=== PATIENT | female | born 1990 | race Caucasian/White ===

== ENCOUNTER 2020-07-09 07:25 | Outpatient (RCR) | payer OTHER, SELFPAY ==
[2020-07-06 16:10] LABS: Beta HCG Quantitative 10.85 mIU/ML
[2020-07-09 08:21] LABS: Beta HCG Quantitative < 2.39 mIU/ML
== END 2020-10-04 23:59 | disposition home or self-care (01) ==
LOC: ANHLAB 07:25
PROVIDERS: Visit Provider Obstetrics & Gynecology Gynecology
DX: O26.851 Spotting complicating pregnancy, first trimester (principal); Z3A.00 Weeks of gestation of pregnancy not specified
CPT/HCPCS: 36415; 84702; 85461

== ENCOUNTER 2021-01-30 15:08 | Outpatient (CLI) | payer OTHER, SELFPAY ==
--- NOTE | ~2021-01-30 | US_ITS ---
EXAMINATION: US OB <=14 wk fetus w TV EXAM DATE: 01/30/2021 15:49 INDICATION: 1st trimester bleeding. TECHNIQUE: Pelvic obstetrical transabdominal sonogram was performed by a technologist. There are mu ltiple grayscale and Doppler images available for interpretation. There are no earlier studies of th is gestation for comparison. FINDINGS: Uterus measures 8.0 x 4.2 x 6.3 cm. There is an intrauterine gestation sac identified with abnormally shaped and small yolk sac. Cannot identify any definite pole. Mean sac diameter of 1 .0 cm corresponds to estimated age 5 weeks 4 days. There is a 2nd cystic region also identified withi n the other side of the uterus which is smaller, may also have a decidual reaction. Possibly another gestation sac with irregular shape. No pole. Poor prognostic indicators for this . The right ovary probably has the corpus luteal cyst. Doppler flow was confirmed in both ovaries. IMPRESSION: 2 intrauterine cystic regions, larger with abnormally yolk sac, the smaller with abnormal shape. No pole(s) identified. Poor prognostic indicators for this . Consider 1 week f ollow-up exam. Reviewed, dictated and finalized at location A. IMPRESSION: 2 intrauterine cystic regions, larger with abnormally yolk sac, the smaller with abnormal shape. No pole(s) identified. Poor prognostic ishmael cators for this . Consider 1 week follow-up exam.
== END 2021-01-30 15:09 | disposition home or self-care (01) ==
PROVIDERS: Visit Provider Obstetrics & Gynecology Gynecology
DX: O26.851 Spotting complicating pregnancy, first trimester (principal); Z3A.00 Weeks of gestation of pregnancy not specified
CPT/HCPCS: 76801; 76817

== ENCOUNTER 2021-02-11 06:53 | Outpatient (RCR) | payer OTHER, SELFPAY | END 2021-04-22 23:59 | disposition home or self-care (01) | LOC: ANHLAB 06:53 | PROVIDERS: Referring Provider Obstetrics & Gynecology; Visit Provider Obstetrics & Gynecology Gynecology | DX: O26.21 Pregnancy care for patient with recurrent pregnancy loss, first trimester (principal); O26.851 Spotting complicating pregnancy, first trimester; O02.1 Missed abortion; Z3A.00 Weeks of gestation of pregnancy not specified | CPT/HCPCS: 36415; 84702 ==

== ENCOUNTER 2021-02-11 13:48 | Outpatient (CLI) | payer OTHER, SELFPAY ==
--- NOTE | ~2021-02-11 | US_ITS ---
EXAMINATION: US OB <=14 wk fetus w TV DATE: 02/11/2021 14:35 INDICATION: Inappropriate beta hCG level for gestational age during first trimester . TECHNIQUE: Real-time pelvic ultrasound utilizing both a transvaginal and transabdominal probe was pe rformed. The interpreting radiologist was not present for the study. COMPARISON: 01/30/2021 FINDINGS: The uterus measures 9.8 x 7.0 x 6.0 cm. There are couple intrauterine gestational sacs. A yolk sac a nd pole are identified in the larger stational sac (A) with mean sac diameter of 2.1 cm is loca patti at the right side of the fundus. The crown rump length measures 3-4 mm, which correlates with an estimated gestational age of 6 weeks and 0 days. heart motion is identified on cine grayscale i mages however a trace on M-mode Doppler provided for assessment of heart rate. At the left side of the fundus there is a smaller gestational sac (B) with mean sac diameter of 1.1 c m and irregular in places concave margins. A yolk sac but no definitive pole is identified with in the smaller gestational sac. There is a 2.7 x 1.9 x 3.1 cm hypoechoic subchorionic hematoma situated between the 2 gestational sac s. The left and right ovaries are not visualized. There is small amount of anechoic free fluid in the pe lvis. IMPRESSION: 1. 2 intrauterine gestational sacs, the larger gestational sac A located on the right containing a si ngle living intrauterine fetus. The second smaller gestational sac B demonstrates irregular margins w ith a yolk sac but no discernible pole yet apparent. 2. Gestational age by ultrasound based on the single measured crown-rump length for gestational sac A of 6 weeks 0 day(s) +/- 3 day(s) with ultrasound estimated date of delivery (AMELIA) of 10/01/2021. 3. 3.1 x 2.7 x 1.9 cm hypoechoic subchorionic hematoma situated between the 2 gestational sacs. Reviewed, dictated and finalized at location A. IMPRESSION: 1. 2 intrauterine gestational sacs, the larger gestational sac A located on the right containing a single living intrauterine fetus. The second smaller gestat ional sac B demonstrates irregular margins with a yolk sac but no discernible f etal pole yet apparent. 2. Gestational age by ultrasound based on the single measured crown-rump lengt h for gestational sac A of 6 weeks 0 day(s) +/- 3 day(s) with ultrasound estima patti date of delivery (AMELIA) of 10/01/2021. 3. 3.1 x 2.7 x 1.9 cm hypoechoic subchorionic hematoma situated between the 2 g estational sacs.
== END 2021-02-11 13:49 | disposition home or self-care (01) ==
PROVIDERS: Visit Provider Obstetrics & Gynecology Gynecology
DX: O02.81 Inappropriate change in quantitative human chorionic gonadotropin (hCG) in early pregnancy (principal); Z3A.01 Less than 8 weeks gestation of pregnancy; O36.8910 Maternal care for other specified fetal problems, first trimester, not applicable or unspecified
CPT/HCPCS: 36415; 76801; 76817; 84702

== ENCOUNTER → 2021-02-18 12:55 | Outpatient (CLI) | payer OTHER, SELFPAY ==
--- NOTE | ~2021-02-18 | US_ITS ---
. EXAMINATION: US OB transvaginal DATE: 02/18/2021 13:21 INDICATION: Subchorionic hematoma. TECHNIQUE: Real-time transabdominal and transvaginal pelvic ultrasound was performed. COMPARISON: Ultrasound 01/30/2021, 02/11/2021 FINDINGS: TRANSABDOMINAL ULTRASOUND: The uterus measures 9.9 x 5.7 x 6.8 cm. TRANSVAGINAL ULTRASOUND: There are two intrauterine gestational sacs, each with a yolk sac and pole. The poles measure 6 mm and 4 mm, respectively. heart motion is not identified by M- mode Doppler, which may be normal at this size. There is a 2.6 x 1.7 x 1.9 cm subchorionic hematoma t hat borders both gestational sacs that measured 3.1 x 2.7 x 1.9 cm on 02/11/21. The ovaries are not vi sualized. There is no free fluid in the pelvis. IMPRESSION: 1. Dichorionic, diamniotic twin fetuses with estimated date of delivery of 10/01/21 based on the ult rasound from 02/11/21. 2. Subchorionic hematoma with slight decrease in size from 02/11/21. Reviewed, dictated and finalized at location A. IMPRESSION: 1. Dichorionic, diamniotic twin fetuses with estimated date of delivery of based on the ultrasound from 02/11/21. 2. Subchorionic hematoma with slight decrease in size from 02/11/21.
== END ==
PROVIDERS: Visit Provider Obstetrics & Gynecology Gynecology
DX: O46.91 Antepartum hemorrhage, unspecified, first trimester (principal); Z3A.01 Less than 8 weeks gestation of pregnancy
CPT/HCPCS: 76817

== ENCOUNTER 2021-02-25 15:11 | Outpatient (CLI) | payer OTHER, SELFPAY ==
--- NOTE | ~2021-02-25 | US_ITS ---
EXAMINATION: US OB <=14 wk fetus w TV DATE: 02/25/2021 15:46 INDICATION: Twin with demise. TECHNIQUE: Real-time transabdominal and transvaginal pelvic ultrasound was performed. COMPARISON: Ultrasound 02/18/2021 FINDINGS: TRANSABDOMINAL ULTRASOUND: The uterus measures 9.1 x 6.2 x 8.9 cm. TRANSVAGINAL ULTRASOUND: There are 2 intrauterine gestational sacs, each with a yolk sac and po le. Fetus a demonstrates a crown-rump length of 6 mm without change from 02/18/2021. Fetus B demonstrat es a crown-rump length of 3 mm that measured 4 mm on 02/18/2021. heart motion is not identified b y M-mode Doppler in either fetus. The right ovary measures 1.6 x 2.8 x 1.5 cm. The left ovary measure s 1.1 x 2.2 x 1.3 cm. There is no free fluid in the pelvis. IMPRESSION: 1. Dichorionic, diamniotic twin fetuses without increase in size from 02/18/2021, consistent with phylicia se of both fetuses. Reviewed, dictated and finalized at location A. IMPRESSION: 1. Dichorionic, diamniotic twin fetuses without increase in size from 02/18/2021 , consistent with demise of both fetuses.
== END 2021-02-25 15:12 | disposition home or self-care (01) ==
PROVIDERS: Visit Provider Obstetrics & Gynecology Gynecology
DX: Z36.89 Encounter for other specified antenatal screening (principal); O02.1 Missed abortion
CPT/HCPCS: 76801; 76817

== ENCOUNTER → 2021-02-27 01:25 | Outpatient (CLI) | payer OTHER, SELFPAY ==
[2021-02-27 21:08] LABS: SARS-CoV-2 RNA PCR Negative
== END ==
PROVIDERS: Visit Provider Obstetrics & Gynecology Gynecology
DX: Z01.812 Encounter for preprocedural laboratory examination (principal); Z20.822 Contact with and (suspected) exposure to COVID-19
CPT/HCPCS: C9803; U0003; U0005

== ENCOUNTER 2021-03-01 00:43 | Day surgery (SDC) | payer OTHER, SELFPAY ==
[2021-02-26 14:59] VITALS: BMI 20.9
[2021-03-01 13:18] VITALS: BP 114/62; PULSE 80; RESP 14; TEMP 37.7; O2SAT 100
[2021-03-01] MEDS: ACETAMINOPHEN 500 MG TABLET 1000 MG PO (13:29)
[2021-03-01] MEDS: LACTATED RINGERS 1,000 ML 30 ML IV CONT ×2 (13:49→15:56)
[2021-03-01 13:59] VITALS: BMI 20.9
--- NOTE | 2021-03-01 14:35 | P.PNAN_ITS ---
Anes - Initial Pre Proc Eval Procedure: Operation Date: 03/01/21 15:00 Proposed Procedures p Suction Dilatation and Curettage - Yolanda Burgess MD Date/Time: 03/01/21 14:35 Surgeon: Yolanda Burgess MD Pre Op Diagnosis: missed AB Patient Data Age: 30 Gender: F Height: 5 ft 4 in Weight: 55.5 kg Last Vital Signs Temp 37.7 C H 03/01/21 13:18 Pulse 80 03/01/21 13:18 Resp 14 03/01/21 13:18 BP 114/62 03/01/21 13:18 Pulse Ox 100 03/01/21 13:18 Allergies Allergy/AdvReac Type Severity Reaction Status Date / Time No Known Allergies Allergy Mild Verified 03/01/21 13:31 Home Medications Medication Instructions Recorded Confirmed Type No Home Medications 02/26/21 03/01/21 History Patient hx anesthesia problems: none Family hx anesthesia problems: none [facility] Past Medical History Medical History (Updated 03/01/21 @ 14:35 by Latrell Riddle MD) Missed ab Social History Social History Smoking status: Never smoker Alcohol intake: never Substance use: never Substance use type: does not use Living arrangements: with family Spiritual care concerns: No Anes - Eval Final PreProcedure Day of Procedure 03/01/21 14:35 Patient weight: normal Heart: regular rate and rhythm Lungs: clear to auscultation Airway: Mallampati scale class 1 Neurological: alert and oriented Last oral intake: >/= 8 hours ASA classification: II Emergent: no Anesthetic plan: proceed Anesthesia type and monitoring: general GIVS and standard monitoring Informed Consent: The patient's anesthetic plan and its attendant risks and benefits were discussed with the patient/family/POA. Questions were solicited and answers provided to the satisfaction of the patient/family/POA.
--- NOTE | 2021-03-01 14:49 | P.HP_ITS ---
History of Present Illness History of Present Illness Consent: Risks, benefits, and alternatives have been discussed and questions answered. Patient agrees to proceed with procedure. Chief complaint: missed AB Narrative: Gely Duong is a 30 year old female with twin demise at 6- 7 weeks. Patient initially had bleeding but has stopped. Recommend to proceed with suction d&c. Risks of procedure discussed and patient agrees to proceed. Plan to check chromosomes. Review of Systems Review of Systems: Narrative: not repeated day of surgery; patient states no changes in status [facility] Past Medical History Medical History (Updated 03/01/21 @ 14:52 by Yolanda Burgess MD) Missed ab Spontaneous x 1 Social History Social History Smoking status: Never smoker Alcohol intake: never Substance use: never Substance use type: does not use Living arrangements: with family Spiritual care concerns: No Meds Home Medications and Allergies Home Medications Medication Instructions Recorded Confirmed Type No Home Medications 02/26/21 03/01/21 History Allergies Allergy/AdvReac Type Severity Reaction Status Date / Time No Known Allergies Allergy Mild Verified 03/01/21 13:31 Vital Signs Vital Signs - 24 hr 03/01/21 13:18 Temperature 99.9 F H Pulse Rate 80 Respiratory Rate 14 Blood Pressure 114/62 Pulse Oximetry 100 Exam Const: General: comfortable Resp: Effort & Inspection: normal respiratory effort Auscultation: clear to auscultation bilaterally Cardio: Rate: regular rate Rhythm: regular rhythm GI: Inspection: normal to inspection GI Palp: No abdominal tenderness Assessment and Plan Assessment and plan (1) Missed ab: Code(s): O02.1 - Missed Status: Inactive Assessment and Plan: Proceed with D&C and check chromosomes
--- NOTE | 2021-03-01 14:52 | WPDHPUPDATE1 ---
History and Physical Update Update Date/Time: 03/01/21 14:52 History and Physical has been reviewed, including an updated exam of the patient. There are NO changes in the patient's condition. Risks, benefits, and alternatives have been discussed and questions answered. Patient agrees to proceed with procedure.
--- NOTE | 2021-03-01 15:23 | PM.PROC ---
Procedure Note - Detailed Date of procedure: 03/01/21 Pre-op diagnosis: missed AB twins Post-op diagnosis: same Procedure performed: suction D&C Description of procedure: The patient is taken to the operating room and placed in the dorsal lithotomy position under anesthesia. She is prepped and draped in the usual sterile fashion. The bivalve speculum was placed in the vagina and the cervix is grasped on the anterior lip with a tenaculum. The cervix is injected with 1% lidocaine in each quadrant. The uterus is sounded to 10cm. The cervix is serially dilated with Hegar to an 8. The 8mm curved suction curette is used to evacuate the uterus until no further products were noted in the tubing. The sharp curette is used to sharply curette the endometrium until a good uterine cry was noted in all areas. No additional material was obtained. The suction curette was passed 1 additional time and no further products were noted in the tubing. All instruments are removed. Patient is awakened from anesthesia and taken to recovery in stable condition. Sponge, needle, and instrument counts are correct per the OR staff. Anesthesia: MAC and local Surgeon: Yolanda Burgess MD Estimated blood loss (mL): 100 (100 cc POC) Drains: No Packing: No Pathology: yes (POC) Complications: No immediate complications Condition: stable Disposition: PACU Findings: uterus 10 cm; moderate POC
[2021-03-01 15:24] VITALS: BP 98/50; PULSE 85; RESP 16; O2SAT 100
[2021-03-01 15:50] VITALS: BP 101/54; PULSE 77; RESP 16
== END 2021-03-01 16:15 | disposition home or self-care (01) ==
PROVIDERS: Visit Provider Obstetrics & Gynecology Gynecology
PROC: (CPT 59820; principal; 2021-03-01 15:00)
DX: O02.1 Missed abortion (principal); Z3A.01 Less than 8 weeks gestation of pregnancy
CPT/HCPCS: 59820; 36415; 85461; 88305; A9270; C9803; J0131; J1100; J2250; J2704; J7120; U0003; U0005

== ENCOUNTER 2021-07-09 15:02 | Emergency (ER) | payer OTHER, SELFPAY ==
--- NOTE | ~2021-07-09 | US_ITS ---
EXAMINATION: US OB <=14 wk fetus w TV DATE: 07/09/2021 16:48 INDICATION: One day of bleeding and cramping during first trimester of . TECHNIQUE: Real-time pelvic ultrasound utilizing both a transvaginal and transabdominal probe was pe rformed. The interpreting radiologist was not present for the study. COMPARISON: None. FINDINGS: The uterus measures 9.2 x 4.1 x 5.3 cm. There is an intrauterine gestational sac with double decidua sign and 3 mm yolk sac.No discernible pole yet apparent. The mean sac diameter of 11 mm correl ates with an estimated gestational age of 5 weeks and 6 days. There is a 6 mm hypoechoic region withi n the endometrial canal on the right side of the gestational sac likely representing a small subchori onic hematoma. The right ovary measures 2.7 x 1.7 x 2.0 cm. The left ovary is not visualized. There i s no free fluid in the pelvis. IMPRESSION: 1. Single intrauterine gestational sac with yolk sac but no discernible pole likely due to eleno y stage of . 2. Gestational age by ultrasound mean sac diameter of 5 weeks 6 day(s) +/- 4 day(s) with ultrasound estimated date of delivery (AMELIA) of 03/05/2022. 3. Small 6 mm subchorionic hematoma. Reviewed, dictated and finalized at location B. IMPRESSION: 1. Single intrauterine gestational sac with yolk sac but no discernible p ole likely due to early stage of . 2. Gestational age by ultrasound mean sac diameter of 5 weeks 6 day(s) +/- 4 d ay(s) with ultrasound estimated date of delivery (AMELIA) of 03/05/2022. 3. Small 6 mm subchorionic hematoma.
[2021-07-09 15:15] VITALS: BP 115/64; PULSE 99; RESP 16; TEMP 36.9; O2SAT 100
[2021-07-09 15:54] LABS: Basophils Absolute Auto 0.1 K/mm3 (0.0-0.1); Basophils Percent Auto 0.6 % (0.2-1.2); Eosinophils Absolute Auto 0.1 K/mm3 (0-0.3); Eosinophils Percent Auto 0.9 % (0-4.4); Hematocrit 39.6 % (37.0-47.0); Hemoglobin 13.4 g/dL (12.0-15.0); Immature Granulocyte Absolute 0.03 K/mm3 (0.00-0.031); Immature Granulocyte Percent A 0.4 % (0-0.5); Lymphocytes Absolute Auto 1.85 K/mm3 (0.9-3.2); Lymphocytes Percent Auto 21.9 % (18.3-44.2); Mean Corpuscular HGB Conc 33.8 g/dl (32-36); Mean Corpuscular Hemoglobin 32.9 pg (26-34); Mean Corpuscular Volume 97.3 fl (80-100); Monocytes Absolute Auto 0.6 K/mm3 (0.1-0.6); Monocytes Percent Auto 6.9 % (2.6-8.5); Neutrophils Absolute Auto 5.9 K/mm3 (1.3-6.7); Neutrophils Percent Auto 69.3 % (45.5-73.1); Platelet Count Result 226 k/mm3 (150-375); Red Blood Count 4.07 M/mm3 (4.2-5.4); Red Cell Distribution Width 12.7 % (11.5-14.5); White Blood Count 8.4 K/mm3 (4.5-10.0)
[2021-07-09 17:17] VITALS: BP 109/68; PULSE 86; RESP 18; O2SAT 98
--- NOTE | 2021-07-09 17:30 | ED.GENADULT ---
HPI - General Adult General Chief complaint: [employer] Stated complaint: 5 weeks Bleeding Time Seen by Provider: 07/09/21 17:20 Source: patient History of Present Illness HPI narrative: Patient is a 31 y/o female complaining of mild to moderate vaginal bleed starting earlier today. She states that she is passing some clots. There is no known alleviating or exacerbating factor. She has some mild pelvic cramp, but it has resolved. She states that she is and her LMP was on 05/30/21. She contacted her doctor's office and was told to come to ED for evaluation. Related Data Home Medications Medication Instructions Recorded Confirmed No Home Medications 02/26/21 03/01/21 Allergies Allergy/AdvReac Type Severity Reaction Status Date / Time No Known Allergies Allergy Mild Verified 03/01/21 13:31 Review of Systems Constitutional: Constitutional: Denies chills, Denies fever(s), Denies headache(s) and Denies weakness Eyes: Eyes: Denies blurry vision ENT: Denies headache(s) and Denies neck pain Cardiovascular: Cardiovascular: Denies chest pain and Denies dyspnea Respiratory: Respiratory: Denies cough and Denies dyspnea Gastrointestinal: Gastrointestinal: Denies abdominal pain, Denies diarrhea, Denies nausea and Denies vomiting Genitourinary: Genitourinary: Reports abnormal vaginal bleeding, Denies hematuria, Denies dysuria and Reports pelvic pain Musculoskeletal: Musculoskeletal: Denies back pain and Denies neck pain Neurologic: Denies headache(s) and Denies weakness PMFSH Past Medical History Medical History Missed ab Spontaneous x 1 Social History Social History Smoking status: Never smoker Alcohol intake: never Substance use: never Substance use type: does not use Spiritual care concerns: No Exam Const: General: no acute distress and well developed Orientation/consciousness: oriented to person, oriented to place, oriented to time and patient oriented x3 HENMT: Head: normocephalic Ears: external ears normal General nose exam: Normal external nose present Eyes: General: appearance normal, both eyes and all related structures Conjunctivae: conjunctivae normal Neck: Neck: normal visual inspection and full ROM Chest: Chest palpation & inspection: normal inspection of the chest Resp: Effort & Inspection: normal respiratory effort and able to speak in complete sentences GI: Inspection: normal to inspection GI Palp: Yes Soft to palpation Skin: General skin exam: normal color and turgor normal Neuro: General: oriented to person, oriented to place, oriented to time and patient oriented x3 Cognition (Neuro): normal cognition Extrem: General: normal to inspection, full ROM and no pedal edema Psych: Appearance: grossly normal Mental Status: mental status grossly normal Affect: normal affect Course Vital Signs Vital signs: Vital Signs Temperature 36.9 C 07/09/21 15:15 Pulse Rate 99 07/09/21 15:15 Respiratory Rate 16 07/09/21 15:15 Blood Pressure 115/64 07/09/21 15:15 Pulse Oximetry 100 07/09/21 15:15 Temperature 36.9 C 07/09/21 15:15 Pulse Rate 86 07/09/21 17:17 Respiratory Rate 18 07/09/21 17:17 Blood Pressure 109/68 07/09/21 17:17 Pulse Oximetry 98 07/09/21 17:17 Medical Decision Making Vital Signs Vital Signs: Vital Signs Temperature 36.9 C 07/09/21 15:15 Pulse Rate 99 07/09/21 15:15 Respiratory Rate 16 07/09/21 15:15 Blood Pressure 115/64 07/09/21 15:15 Pulse Oximetry 100 07/09/21 15:15 Temperature 36.9 C 07/09/21 15:15 Pulse Rate 86 07/09/21 17:17 Respiratory Rate 18 07/09/21 17:17 Blood Pressure 109/68 07/09/21 17:17 Pulse Oximetry 98 07/09/21 17:17 Lab Data Result diagrams: 07/09/21 15:44 Labs: Lab Results 07/09/21 07/09/21 07/09/21 Range/Units
== END 2021-07-09 17:49 | disposition home or self-care (01) ==
LOC: ANHED 17:40
PROVIDERS: Emergency Medicine; Emergency Provider Emergency Medicine
DX: O20.0 Threatened abortion (principal); Z3A.01 Less than 8 weeks gestation of pregnancy
CPT/HCPCS: 36415; 76801; 76817; 84702; 85025; 85461; 99284

== ENCOUNTER 2021-12-20 11:38 | Outpatient (CLI) | payer OTHER, SELFPAY ==
[2021-12-20 12:04] LABS: Hematocrit 35.8 % (37.0-47.0); Hemoglobin 12.1 g/dL (12.0-15.0); Mean Corpuscular HGB Conc 33.8 g/dl (32-36); Mean Corpuscular Hemoglobin 34.1 pg (26-34); Mean Corpuscular Volume 100.8 fl (80-100); Mean Platelet Volume 9.8 fl (7.4-10.4); Platelet Count Result 200 k/mm3 (150-375); Red Blood Count 3.55 M/mm3 (4.2-5.4); Red Cell Distribution Width 12.5 % (11.5-14.5); White Blood Count 11.8 K/mm3 (4.5-10.0)
[2021-12-20 12:54] LABS: HIV 1/2 Ab P24 Ag Result Negative (Negative)
[2021-12-20 13:34] LABS: Glucose 1 Hour PP 50gm Dose 93 mg/dL
== END 2021-12-20 11:39 | disposition home or self-care (01) ==
LOC: ANHLAB 11:40
PROVIDERS: Visit Provider Obstetrics & Gynecology
DX: Z34.90 Encounter for supervision of normal pregnancy, unspecified, unspecified trimester (principal)
CPT/HCPCS: 36415; 82947; 85027; 86703; G0432

== ENCOUNTER 2022-03-04 08:32 | Outpatient (RCR) | payer OTHER, SELFPAY ==
[2022-03-04 09:15] VITALS: BP 121/63; PULSE 75
== END 2022-03-24 08:09 | disposition home or self-care (01) ==
LOC: ANHOBOP 08:32
PROVIDERS: Visit Provider Obstetrics & Gynecology
DX: O36.8130 Decreased fetal movements, third trimester, not applicable or unspecified (principal); Z3A.39 39 weeks gestation of pregnancy
CPT/HCPCS: 59025

== ENCOUNTER 2022-03-07 05:51 | Inpatient (IN) | payer OTHER, SELFPAY ==
[2022-03-06 08:30] VITALS: BMI 29.7
[2022-03-07] VITALS (90 sets, daily range): BP systolic 72–144; BP diastolic 50–122; PULSE 41–260; RESP 18; TEMP 36.5–37.1; O2SAT 78–100
--- OUTSIDE RECORDS SUMMARY | 2022-03-07 05:56 | XMS_ITS ---
:1990 Author Care Team Providers Name Role Phone Timmy Kendrick Primary Care Provider Unavailable Allergies Code Code System Name Reaction Severity Status Onset NKDA ? Medications Name Status Start Date Stop Date ? ? progesterone micronized 100 mg capsule Completed ? 09/03/2021 Notes: PNV Problems Name Status Onset Date Source ? Active 08/06/2021 ? Procedures Date Name Performed by ? 03/06/2021 [employer] Surgery Information not avai lable Notes: suction D&C missed AB with twi ns ? Other Information not avai lable Notes: wisdom teeth removed 07/12/2021 , Obstetric, [address]St Trimester [address] [place] [address] ([address]) 08/20/2021 , Obstetric, 1St Trimester [facility] [address] [place] [address] [place] [phone] (Work [address]) Results Lab Results Date Name Specimen Result Interpretation Description Value Range Status Address ? 08/20/2021 Cbc ? White Blood 8.9 4.2-10.8 Final [place] Cells x10'3/uL x10'3/uL [facility] (Lab):
--- NOTE | 2022-03-07 06:20 | LDADM ---
This patient, Gely Duong, was admitted to Labor/Delivery/Recovery 106 on 03/07/22 at 05:51. Plans for labor, pain management and were discussed with patient. Patient/family oriented to hospital policies and general routines including ID bracelet, bed and alarms, visiting hours, pain management, procedures, bathroom and other care routines, personal items, smoking policy, room service/diet and guest tray routines, infant security routines, and visiting hours. Patient/Family are encouraged to report perceived risks to care and to ask questions if they do not understand what they are told or what they should do. See OBIX for further documentation.
[2022-03-07 06:42] LABS: Basophils Percent Auto 0.3 % (0.2-1.2); Eosinophils Absolute Auto 0.1 K/mm3 (0-0.3); Eosinophils Percent Auto 1.4 % (0-4.4); Hematocrit 30.5 % (37.0-47.0); Hemoglobin 10.2 g/dL (12.0-15.0); Immature Granulocyte Absolute 0.07 K/mm3 (0.00-0.031); Immature Granulocyte Percent A 0.7 % (0-0.5); Lymphocytes Absolute Auto 1.57 K/mm3 (0.9-3.2); Lymphocytes Percent Auto 15.7 % (18.3-44.2); Mean Corpuscular HGB Conc 33.4 g/dl (32-36); Mean Corpuscular Hemoglobin 31.4 pg (26-34); Mean Corpuscular Volume 93.8 fl (80-100); Monocytes Absolute Auto 0.6 K/mm3 (0.1-0.6); Monocytes Percent Auto 6.1 % (2.6-8.5); Neutrophils Absolute Auto 7.6 K/mm3 (1.3-6.7); Neutrophils Percent Auto 75.8 % (45.5-73.1); Platelet Count Result 204 k/mm3 (150-375); Red Blood Count 3.25 M/mm3 (4.2-5.4); Red Cell Distribution Width 12.6 % (11.5-14.5)
[2022-03-07] MEDS: LACTATED RINGERS 1,000 ML 125 ML IV CONT (06:56)
[2022-03-07] MEDS: OXYTOCIN 30 UNITS/NS 500 ML 30 UNITS/500 ML BAG 6 UNITS IV CONT (06:57)
[2022-03-07 07:20] LABS: Rapid Plasma Reagin Non-Reactive (NonReactive)
--- NOTE | 2022-03-07 08:07 | WPDANESEPPF ---
Anes - Initial Pre Proc Eval Procedure: labor epidural Date/Time: 03/07/22 08:07 Surgeon: Timmy Kendrick MD Pre Op Diagnosis: labor pain Pre Op Diagnosis: IOL Patient Data Age: 31 Gender: F Height: 1.6 m Weight: 76 kg Last Vital Signs Temp 36.5 C 03/07/22 07:00 Pulse 100 03/07/22 07:31 BP 112/96 H 03/07/22 07:31 Allergies Allergy/AdvReac Type Severity Reaction Status Date / Time No Known Allergies Allergy Mild Verified 02/27/22 08:52 Home Medications Medication Instructions Recorded Confirmed Type vitamins-iron fumarate 65 1 tablet PO DAILY 12/25/21 03/07/22 History mg iron-folic acid 1 mg tablet Laboratory Tests 03/07/22 03/07/22 03/07/22 06:35 06:36 06:36 WBC 10.0 K/mm3 K/mm3 (4.5-10.0) RBC 3.25 M/mm3 L M/mm3 (4.2-5.4) Hgb 10.2 g/dL L g/dL (12.0-15.0) Hct 30.5 % L % (37.0-47.0) MCV 93.8 fl fl (80-100) MCH 31.4 pg pg (26-34) MCHC 33.4 g/dl g/dl (32-36) RDW 12.6 % % (11.5-14.5) Plt Count 204 k/mm3 k/mm3 (150-375) MPV 10.0 fl fl (7.4-10.4) Immature Gran % (Auto) 0.7 % H % (0-0.5) Neut % (Auto) 75.8 % H % (45.5-73.1) Lymph % (Auto) 15.7 % L % (18.3-44.2) [place] % (Auto) 6.1 % % (2.6-8.5) Eos % (Auto) 1.4 % % (0-4.4) Baso % (Auto) 0.3 % % (0.2-1.2) Lymph # (Auto) 1.57 K/mm3 K/mm3 (0.9-3.2) [place] # (Auto) 0.6 K/mm3 K/mm3 (0.1-0.6) Eos # (Auto) 0.1 K/mm3 K/mm3 (0-0.3) Baso # (Auto) 0.0 K/mm3 K/mm3 (0.0-0.1) Abs Immat Gran (auto) 0.07 K/mm3 H K/mm3 (0.00-0.031) Absolute Neuts (auto) 7.6 K/mm3 H K/mm3 (1.3-6.7) Absolute Nucleated RBC 0.0 K/mm3 K/mm3 (0.0-0.012) Nucleated RBC % 0.0 % % (0.0-0.2) RPR Non-reactive (NonReactive) Blood Type A Positive Antibody Screen Negative Patient hx anesthesia problems: none Family hx anesthesia problems: none Results Review: All pre-operative results and documents have been reviewed as part of the pre-operative evaluation. [facility] Past Medical History Medical History (Updated 02/17/22 @ 15:08 by CHANELL Burnette) Lactating mother Missed ab Spontaneous x 1 Surgical History Surgical History (Updated 11/26/21 @ 07:25 by CHANELL Burnette) History of gynecological procedure (03/06/21) suction D&C missed AB with twins [place] teeth removed Family History Family History Other Myocardial infarct Grandparent FHx: prostate cancer Social History Social History (Updated 11/26/21 @ 07:28 by CHANELL Burnette) Smoking status: Never smoker Alcohol intake: never Substance use: never Substance use type: does not use Additional living arrangements comments: spouse Gender identity (if verbalized by the patient): Female Sexual Orientation (if Verbalized by the Patient): Straight or Heterosexual Spiritual care concerns: No Anes - Eval Final PreProcedure Day of Procedure 03/07/22 08:07 Patient weight: overweight ASA classification: II Anesthesia type and monitoring: regional epidural and standard monitoring Results Review: All pre-operative results and documents have been reviewed as part of the pre-operative evaluation. Informed Consent: The patient's anesthetic plan and its attendant risks and benefits were discussed with the patient/family/POA. Questions were solicited and answers provided to the satisfaction of the patient/family/POA.
--- NOTE | 2022-03-07 11:49 | PM.OBPRVD ---
OB - Delivery Note Procedure Induction method: AROM and Per Pitocin Protocol Delivery monitor: External FHT and External Uterine Route of delivery: Episiotomy description: None Laceration Description: Vaginal Delivery repair: chromic Specimen: No Quantitative Blood Loss (ml): 300 Anesthesia type: Epidural Disposition: Floor Narrative: Patient prepped and procedure. Maternal expulsive efforts readily delivered vertex. Rest of baby delivered without difficulty and cord clamped and cut. Placenta delivered spontaneously as well. Vaginal laceration was noted and rendered hemostatic using [id number] of 2-0 chromic suture. At this point the uterus was well contracted with minimal bleeding. Overall doing well immediate postop is for both excellent. Baby Weeks of gestation at delivery: 39 Infant gender: Male Weight (pounds): 7 Weight (ounces): 0 presentation: vertex Cord Vessel Description: 3 Vessels score one minute: 9 score five minutes: 9 AMG Delivery Billing Delivery Delivery: Delivery Charge
[2022-03-07] MEDS: OXYTOCIN 30 UNITS/NS 500 ML 30 UNITS/500 ML BAG 125 UNITS IV CONT (12:10)
[2022-03-07] MEDS: WITCH HAZEL 40 PADS 1 PAD TOPICAL (14:10)
--- NOTE | 2022-03-07 15:31 | PC.NURSE ---
[id number] Introductions were made, then consulted with patient to assess needs related to . Mother led the conversation with her experience feeding her so far. Mother works well with her with encouragement and education. Encouraged understanding of the benefits of skin to skin (unwrapping and placing vertically on her chest), responsive feeding and how to watch for early feeding signs, frequency of feeding on demand about every 8-12 times in 24 hours (every 2-3 hours), milk production, duration of feeding, signs of adequate intake/output and how to record on the feeding sheet. Educated parents on stimulating to feed, burping, managing spit up and changing a large meconium filled diaper. Reviewed positioning and ear, shoulder, hip alignment, supporting the breast, asymmetrical latch (off-center), and leading with the chin with a big open side gape. latched optimally to the right breast in cradle position. Education given to mother of how to visualize suck/swallow ratios and drinking at the breast. was able to maintain latch without discomfort to mother. Nipple care reviewed with optimal latch and good positioning. Reminding mother of comfort measures of healing with a warm and wet washcloth to rinse breast, then leave open to air-dry as needed. Reviewed good handwashing when or touching the breast/nipples to prevent infection. Resources used to facilitate learning were used with the visual handouts/mom and baby guide. Mother voiced understanding of responsive feedings, stimulating with skin to skin, hand expressed colostrum, touch, talking to infant to encourage if it has been 2 -3 hours since the start of the last , to call if does not latch or there is discomfort with . Reported to the primary RN.
--- NOTE | 2022-03-07 16:52 | OBPPTRN ---
1428-Patient transferred to post room #291 via wheelchair. Support person present. Oriented to unit, room, information board, rooming in, admission packet and security measures. Patient verbalizes understanding.
[2022-03-08 04:22] VITALS: BP 104/65; PULSE 64; RESP 18; TEMP 36.6; O2SAT 100
[2022-03-08 05:32] LABS: Hematocrit 28.2 % (37.0-47.0); Hemoglobin 9.3 g/dL (12.0-15.0)
[2022-03-08] MEDS: MULTIVIT/MIN/PREN/FOL AC/IRON TABLET 1 TAB PO (08:21)
[2022-03-08] MEDS: POLYSACCHARIDE IRON COMPLEX 150 MG CAPSULE PO (08:21)
[2022-03-08 08:22] VITALS: BP 114/77; PULSE 81; RESP 20; O2SAT 99
--- NOTE | 2022-03-08 08:34 | WPDANLDNPN2 ---
Anes-Prog Note L&D-Neuraxial Date/Time: 03/08/22 08:34 Patient feedback: Patient satisfied with post-operative pain management.
--- NOTE | 2022-03-08 09:23 | P.PNOB_ITS ---
OB - PN: Subj Subjective Date/time seen: 03/08/22 09:23 Narrative: PPD#1 Geyl reports doing well today. Her bleeding is light. Her pain is well controlled. She is tolerating regular diet, voiding, passing gas, and ambulating without issues. She is breast feeding. She would like her son circumcised. She would like to go home today. OB - PN: Obj Data Labs CBC & Chem 7: 03/08/22 04:07 Labs: Laboratory Results - last 24 hr 03/08/22 04:07 Hgb 9.3 L Hct 28.2 L OB - PN A/P Assessment and Plan (1) Normal vaginal delivery: Code(s): O80 - Encounter for full-term uncomplicated delivery Status: Acute Plan day: 1 Plan: routine care and discharge home Comments: - Pelvic rest; take meds as prescribed - ER return precautions: fever, n/v/abd pain, bleeding, HTN Time Spent With Patient Time: Total time spent is greater than 50% in coordination of care (as documented) at patient's floor/unit and/or counseling patient: Review of Systems Constitutional: Constitutional: Denies chills, Denies fever(s) and Denies headache(s) Eyes: Eyes: Denies change in vision ENT: Denies dizziness and Denies headache(s) Cardiovascular: Cardiovascular: Denies chest pain, Denies palpitations and Denies dyspnea Respiratory: Respiratory: Denies cough and Denies dyspnea Gastrointestinal: Gastrointestinal: Denies nausea and Denies vomiting Neurologic: Denies dizziness and Denies headache(s) Endocrine: Endocrine: Denies palpitations Exam Const: General: cooperative, comfortable and no acute distress Parrott ation/consciousness: patient oriented x3 Resp: Effort & Inspection: normal respiratory effort Auscultation: clear to auscultation bilaterally Cardio: Rate: regular rate GI: Inspection: non-distended GI Palp: No abdominal tenderness and Yes Soft to palpation Auscultation: normal bowel sounds : Other: fundus firm Skin: General skin exam: normal color Neuro: General: patient oriented x3 Extrem: General: normal to inspection Psych: Appearance: grossly normal Affect: normal affect Attitude: cooperative
--- NOTE | 2022-03-08 11:51 | PC.NURSE ---
Patient viewed the discharge video Mother & Baby Care, The First Two Weeks . Patient was given the opportunity and encouraged to ask questions. Patient verbalized understanding of information shared and has been given the mother/baby guide for home reference.
[2022-03-10 10:16] VITALS: BP 115/72; PULSE 76; RESP 20; TEMP 36.7; O2SAT 100
--- NOTE | 2022-03-10 12:29 | PM.OBDSVD ---
DS: Admitting Diagnosis Discharge Date 03/08/22 Admitting Diagnosis induction DS: Discharge Diagnosis Discharge Diagnosis (1) Normal vaginal delivery: Code(s): O80 - Encounter for full-term uncomplicated delivery Status: Acute OB - DS: Summary OB Procedures : Ultrasound OB Procedures Intrapartum: Spontaneous Vag Delivery OB Procedures: : None Peripartum Data Delivery Method: Natural Vaginal Laceration Description: Vaginal - 1st Degree complications: none 1: Gender: Male Disposition of : home Status at Discharge Functional status at discharge: independent ambulation Overall status at discharge: patient is back to baseline Time Spent with Patient Time attestation: Total time spent providing and/or coordinating discharge services: Time spent: Less than 30 minutes Exam Const: General: cooperative, comfortable and no acute distress Orientation/consciousness: patient oriented x3 Resp: Effort & Inspection: normal respiratory effort Auscultation: clear to auscultation bilaterally Cardio: Rate: regular rate GI: Inspection: non-distended GI Palp: No abdominal tenderness and Yes Soft to palpation Auscultation: normal bowel sounds : Other: fundus firm Skin: General skin exam: normal color Neuro: General: patient oriented x3 Extrem: General: normal to inspection Psych: Appearance: grossly normal Affect: normal affect Attitude: cooperative Discharge Plan Discharge Attending physician on discharge: Nafisa Sams Discharging Clinician: Nafisa Sams Anticipated Discharge Date/Time: 03/08/22 14:00 Patient Disposition: Home, Self-Care Activity: may shower and pelvic rest Diet: regular Discharge Instructions: Education: Mom and Baby Guide Given to: Mother Follow-Up: Call your delivering provider's office for an appointment to be seen in: 6 Weeks Mom and baby should come to the [facility] for the follow-up appointment. Appointment Date/Time: March 10, 2022 at 10:00 am What to expect at your follow-up visit: Physical Assessment Call [phone] if you are unable to keep your appointment time. BREAST CARE: * Wear a snug supportive bra. * For engorgement discomfort: Breast Feeding: * Apply warm moist washcloths * Express milk as needed to relieve engorgement * Wear loose clothing Bottle Feeding: * May apply ice packs * For sore nipples: * Identify correct latch-on * Apply warm moist washcloths before and after nursing * Air dry nipples after nursing * May apply Lansinoh cream to nipples EPISIOTOMY/PERINEAL CARE: * Until bleeding stops, use your denise bottle after urinating * Change your pad frequently throughout the day * You may take sitz baths several times a day (fill your bathtub with warm water and soak for 20 minutes.) Do NOT bathe in the water * No tub baths until seen by your physician - You may shower ACTIVITY: * Rest as much as possible. * Do not exercise or lift anything heavier than your baby (such as laundry or other children.) * Avoid stairs or driving as much as possible. * Do not put anything into the vagina. No douching, tampons, or sexual activity until seen by physician. NOTIFY PHYSICIAN IF YOU HAVE ANY QUESTIONS OR IF ANY OF THE FOLLOWING SYMPTOMS OCCUR: * If your episiotomy or incision becomes red, swollen, or more painful than what you have experienced in the hospital. * If your vaginal bleeding becomes foul smelling. * If your vaginal bleeding becomes more heavy than a period or if your bleeding changes from pink to bright red. However, you may pass an occasional walnut-sized clot once or twice for the first week . * If you experience a sharp, shooting pain in you calves. * If you discover a hard, reddened area on your breast or if you experience flu-like s
== END 2022-03-08 13:30 | disposition home or self-care (01) | DRG 807 ==
LOC: ANHOB2 03-08 09:26 → ANHLDR 03-10 12:35 → ANHOB2 03-10 12:35
PROVIDERS: Admitting Provider Obstetrics & Gynecology; Visit Provider Obstetrics & Gynecology
DX: O71.4 Obstetric high vaginal laceration alone (principal); Z37.0 Single live birth; Z3A.40 40 weeks gestation of pregnancy; O36.8330 Maternal care for abnormalities of the fetal heart rate or rhythm, third trimester, not applicable or unspecified
CPT/HCPCS: 36415; 59025; 85014; 85018; 85025; 86592; 86850; 86900; 86901; A9270; J2590; J2795; J7120

== ENCOUNTER 2023-07-10 06:54 | Outpatient (CLI) | payer OTHER, SELFPAY ==
[2023-07-10 07:58] LABS: Beta HCG Quantitative 58.46 mIU/ML
== END 2023-07-10 06:55 | disposition home or self-care (01) ==
PROVIDERS: Visit Provider Obstetrics & Gynecology
DX: N94.89 Other specified conditions associated with female genital organs and menstrual cycle (principal)
CPT/HCPCS: 36415; 84702

== ENCOUNTER 2023-07-13 06:57 | Outpatient (CLI) | payer OTHER, SELFPAY | END 2023-07-13 06:58 | disposition home or self-care (01) | LOC: ANHLAB 06:58 | PROVIDERS: Visit Provider Obstetrics & Gynecology | DX: N94.89 Other specified conditions associated with female genital organs and menstrual cycle (principal) | CPT/HCPCS: 36415; 84702 ==

== ENCOUNTER 2023-07-21 06:59 | Outpatient (CLI) | payer OTHER, SELFPAY | END 2023-07-21 07:00 | disposition home or self-care (01) | PROVIDERS: Visit Provider Obstetrics & Gynecology | DX: N94.89 Other specified conditions associated with female genital organs and menstrual cycle (principal) | CPT/HCPCS: 36415; 84702 ==

== ENCOUNTER 2023-08-21 00:36 | Day surgery (SDC) | payer OTHER, SELFPAY ==
[2023-08-14 11:14] VITALS: BMI 20.4
--- NOTE | 2023-08-14 11:17 | PC.NURSE ---
Report to the Outpatient Waiting Room, entrance under the green pavilion located off [facility], at time _0600_ on date _[id number]_. Planned Procedure Time: _0730_. Time changes happen often and if your time is changed the preop area will call you the afternoon before. - You and your visitor will be asked to self-screen and do not enter if you have any COVID symptoms. - A mask is optional within the hospital at this time. Patients may have clear liquids (water, carbonated beverages, clear teas, apple juice) until 3 hours prior to surgery with a maximum of 20 ounces. - No food from midnight until time of surgery Take the following medications with a SIP of water the morning of surgery: ___None DO NOT STOP ANY OF YOUR OTHER PRESCRIPTION MEDICATIONS PRIOR TO SURGERY ?EXCEPT THE FOLLOWING Medications to discontinue per physician Multivitamin Date to take last dzdd___[id number] Please no make-up, nail emirati, hairspray, perfume, deodorant, or body powder the day of surgery. No jewelry (including any body piercings) or valuables the day of surgery, leave them at home. Please take a shower or bath the night before, or the morning of, surgery with an antibacterial soap. Wear comfortable, loose fitting clothing. - Jewelry must be removed prior to entering the operating room. Rings and piercings that are not removed may be cut off. - The hospital will not accept responsibility for valuables. - Please leave all valuables, including medications, at home the day of surgery. If you are going home after surgery, a licensed fork truck driver must drive you home. - NO public transportation without another adult if you receive anesthesia. - We recommend that an adult stay with you for 24 hours following discharge. - We also recommend that you do not drive, make important decision, drink alcoholic beverages, or take any drugs that were not prescribed by your health care provider for at least 24 hours after your discharge time. Follow any additional instructions given to you from your surgeon. If you or anyone in your household have experienced Covid symptoms in the past week, please notify your surgeon or the nurse liaison at the phone number below for possible testing. Telephone instructions given to __Patient___and asked if any additional questions and then verbalized understanding. Patient advised to call surgeon office or pre surgery nurse liaison [phone] if any additional questions.
[2023-08-21] MEDS: ACETAMINOPHEN 500 MG TABLET 1000 MG PO (06:35)
--- NOTE | 2023-08-21 06:37 | P.PNAN_ITS ---
Anes - Initial Pre Proc Eval Procedure: Operation Date: 08/21/23 07:30 Proposed Procedures p Suction Dilation and Curettage - Timmy Kendrick MD Date/Time: 08/21/23 06:37 Surgeon: Timmy Kendrick MD Pre Op Diagnosis: missed ab Patient Data Age: 33 Gender: F Height: 1.6 m Weight: 52.3 kg Allergies Allergy/AdvReac Type Severity Reaction Status Date / Time No Known Allergies Allergy Mild Verified 08/14/23 11:14 Home Medications Medication Instructions Recorded Confirmed Type vitamins-iron fumarate 65 1 tablet PO DAILY 08/04/23 08/14/23 History mg iron-folic acid 1 mg tablet Patient hx anesthesia problems: none Family hx anesthesia problems: none Results Review: All pre-operative results and documents have been reviewed as part of the pre- operative evaluation. [facility] Past Medical History Medical History Lactating mother Missed ab Spontaneous x 1 Surgical History Surgical History History of gynecological procedure (03/06/21) suction D&C missed AB with twins [place] teeth removed Family History Family History Other Myocardial infarct Grandparent FHx: prostate cancer Social History Social History Smoking status: Never smoker Alcohol intake: never Substance use: never Substance use type: does not use Living arrangements: with family Additional living arrangements comments: Occupation/Education: occupation Additional occupation/education comments: Teacher Gender identity (if verbalized by the patient): Female Sexual Orientation (if Verbalized by the Patient): Straight or Heterosexual Spiritual care concerns: No Anes - Eval Final PreProcedure Day of Procedure 08/21/23 06:37 Patient weight: normal Heart: regular rate and rhythm Lungs: clear to auscultation Airway: Mallampati scale class 1 Neurological: alert and oriented Last oral intake: >/= 8 hours ASA classification: II Emergent: no Anesthetic plan: proceed Anesthesia type and monitoring: general GIVS and standard monitoring Results Review: All pre-operative results and documents have been reviewed as part of the pre- operative evaluation. Informed Consent: The patient's anesthetic plan and its attendant risks and benefits were discussed with the patient/family/POA. Questions were solicited and answers provided to the satisfaction of the patient/family/POA.
[2023-08-21 06:54] LABS: Hematocrit 41.6 % (37.0-47.0); Hemoglobin 13.9 g/dL (12.0-15.0); Mean Corpuscular HGB Conc 33.4 g/dl (32-36); Mean Corpuscular Hemoglobin 33.2 pg (26-34); Mean Corpuscular Volume 99.3 fl (80-100); Mean Platelet Volume 9.3 fl (7.4-10.4); Platelet Count Result 220 k/mm3 (150-375); Red Blood Count 4.19 M/mm3 (4.2-5.4); Red Cell Distribution Width 12.8 % (11.5-14.5); White Blood Count 5.9 K/mm3 (4.5-10.0)
--- NOTE | 2023-08-21 07:15 | SUR.PREOP ---
0715- Dr. Kendrick notified patient is A positive. Per Dr. Kendrick labs not needed for RH factor.
--- NOTE | 2023-08-21 07:16 | WPDHPUPDATE1 ---
History and Physical Update Update Date/Time: 08/21/23 07:16 History and Physical has been reviewed, including an updated exam of the patient. There are NO changes in the patient's condition. Risks, benefits, and alternatives have been discussed and questions answered. Patient agrees to proceed with procedure.
[2023-08-21 07:25] VITALS: BP 99/67; PULSE 72; RESP 16; TEMP 36.8; O2SAT 100
[2023-08-21] MEDS: LACTATED RINGERS 1,000 ML 30 ML IV CONT (07:33)
[2023-08-21] MEDS: KETOROLAC 30 MG/ML VIAL (*BKC) IV PUSH (07:43)
--- NOTE | 2023-08-21 07:48 | P.OP_ITS ---
Procedure Note - Detailed Date of Procedure 08/21/23 Pre-op Diagnosis 1. Missed 2. Habitual Post-op Diagnosis Same (3. Endocervical polyp) Procedure Performed 1. Suction curettage 2. Polypectomy Surgeon Timmy Kendrick MD Anesthesia MAC Findings 1. Moderate products of conception 2. Endocervical polyp Description of Procedure Patient prepped in usual manner for this procedure. Small polyp was noted on the endocervix and removed. Uterus was then sounded and appropriately sized curette was obtained. Suction curettage removed moderate amount of products of conception, sharp curette throughout with no retaining tissue, no significant bl eeding at this point the procedure was considered terminated. Estimated Blood Loss 50 Drains No Packing No Pathology Yes Complications No immediate complications Condition Stable Disposition PACU [facility] Billing Surgery - Charge Forward: Surgery Billing
[2023-08-21 07:53] VITALS: BP 96/58; PULSE 73; RESP 16; O2SAT 100
[2023-08-21 08:05] VITALS: BP 92/61; PULSE 63; RESP 16; O2SAT 100
[2023-08-21 08:20] VITALS: BP 93/60; PULSE 57; RESP 16
[2023-08-21 08:30] VITALS: BP 102/64; PULSE 59; RESP 16
== END 2023-08-21 08:40 | disposition home or self-care (01) ==
PROVIDERS: Visit Provider Obstetrics & Gynecology
PROC: (CPT 59812; principal; 2023-08-21 07:30)
DX: O02.1 Missed abortion (principal); N84.0 Polyp of corpus uteri; N96 Recurrent pregnancy loss
CPT/HCPCS: 59812; 36415; 85027; 88264; 88305; A9270; J1100; J1885; J2250; J2405; J2704; J3010; J7120

== ENCOUNTER 2024-03-28 15:30 | Outpatient (CLI) | payer OTHER, SELFPAY ==
[2024-03-30 02:54] LABS: Progesterone 58.8 ng/mL
== END 2024-03-28 15:31 | disposition home or self-care (01) ==
PROVIDERS: Visit Provider Obstetrics & Gynecology
DX: Z34.90 Encounter for supervision of normal pregnancy, unspecified, unspecified trimester (principal); Z3A.00 Weeks of gestation of pregnancy not specified
CPT/HCPCS: 36415; 84144; 84702

== ENCOUNTER 2024-03-30 15:26 | Outpatient (CLI) | payer OTHER, SELFPAY | END 2024-03-30 15:27 | disposition home or self-care (01) | LOC: ANHLAB 15:27 | PROVIDERS: Visit Provider Obstetrics & Gynecology | DX: Z34.90 Encounter for supervision of normal pregnancy, unspecified, unspecified trimester (principal) | CPT/HCPCS: 36415; 84702 ==

== ENCOUNTER 2024-05-26 07:07 | Outpatient (CLI) | payer OTHER, SELFPAY ==
[2024-05-26 07:54] LABS: Basophils Percent Auto 0.4 % (0.2-1.2); Eosinophils Absolute Auto 0.2 K/mm3 (0-0.3); Eosinophils Percent Auto 2.2 % (0-4.4); Hematocrit 37.7 % (37.0-47.0); Hemoglobin 12.5 g/dL (12.0-15.0); Immature Granulocyte Absolute 0.02 K/mm3 (0.00-0.031); Immature Granulocyte Percent A 0.3 % (0-0.5); Lymphocytes Absolute Auto 1.36 K/mm3 (0.9-3.2); Lymphocytes Percent Auto 18.9 % (18.3-44.2); Mean Corpuscular HGB Conc 33.2 g/dl (32-36); Mean Corpuscular Hemoglobin 32.7 pg (26-34); Mean Corpuscular Volume 98.7 fl (80-100); Mean Platelet Volume 9.4 fl (7.4-10.4); Monocytes Absolute Auto 0.5 K/mm3 (0.1-0.6); Monocytes Percent Auto 6.5 % (2.6-8.5); Neutrophils Absolute Auto 5.1 K/mm3 (1.3-6.7); Neutrophils Percent Auto 71.7 % (45.5-73.1); Platelet Count Result 189 k/mm3 (150-375); Red Blood Count 3.82 M/mm3 (4.2-5.4); Red Cell Distribution Width 13.4 % (11.5-14.5); White Blood Count 7.2 K/mm3 (4.5-10.0)
[2024-05-26 09:40] LABS: Hepatitis B Surface Antigen Negative (Negative); Rubella IgG Antibody 26.1 IU/ML
[2024-05-26 11:53] LABS: HIV 1/2 Ab P24 Ag Result Negative (Negative)
[2024-05-27 11:17] LABS: Rapid Plasma Reagin Non-Reactive (NonReactive)
[2024-05-27 12:49] LABS: CMV IgG Antibody <0.60 U/mL
== END 2024-05-26 07:08 | disposition home or self-care (01) ==
LOC: ANHLAB 07:08
PROVIDERS: Visit Provider Obstetrics & Gynecology
DX: Z34.90 Encounter for supervision of normal pregnancy, unspecified, unspecified trimester (principal)
CPT/HCPCS: 36415; 85025; 86592; 86644; 86703; 86747; 86762; 86787; 86850; 86900; 86901; 87086; 87340; G0432

== ENCOUNTER 2024-11-10 09:24 | Inpatient (IN) | payer OTHER, SELFPAY ==
[2024-11-10] VITALS (53 sets, daily range): BP systolic 79–123; BP diastolic 28–69; PULSE 52–187; RESP 12–16; TEMP 36.4–36.9; O2SAT 87–100; BMI 26.9
--- NOTE | 2024-11-10 09:17 | PM.IMHP ---
H&P: HPI History of Present Illness Date/Time: 11/10/24 09:17 34-year-old 6 para 1041 female presents at 38 weeks gestation for delivery due to low lying placenta. We have followed this through the and this is not moved more than 1-1/2cm from the cervical os. she has not had vaginal bleeding during the . We have discussed vaginal delivery versus delivery and patient opts for operative delivery. records otherwise are on the chart and no significant abnormalities have been noted throughout her . Prior vaginal delivery x1 at term without complication. Chief Complaint: Review of Systems Review of Systems: All systems reviewed & are unremarkable except as noted in HPI and below PMFSH Past Medical History Medical History Lactating mother Spontaneous x 1 Missed ab Surgical History Surgical History History of hysteroscopy (08/21/23) Suction curettage Polypectomy / Missed / Habitual History of gynecological procedure (03/06/21) suction D&C missed AB with twins [place] teeth removed Family History Family History Other Myocardial infarct Grandparent FHx: prostate cancer Social History Social History Smoking status: Never smoker Second hand tobacco smoke exposure: No Alcohol intake: never Substance use: never Substance use type: does not use Do You Feel Safe in your Home?: Yes Lack of Transportation: No Lack of Food: Never True Current Housing: I Have Housing Concerned About Future Housing: No Difficulty Paying Gas/Electric Bills: No Difficulty Paying for Meds: No Currently Unemployed: No Education: Master's Degree or Higher Difficulty w/ Childcare or Family Care: No Living arrangements: with family Additional living arrangements comments: Occupation/Education: occupation Additional occupation/education comments: Teacher Gender identity (if verbalized by the patient): Female Sexual Orientation (if Verbalized by the Patient): Straight or Heterosexual Spiritual care concerns: No Meds Home Medications and Allergies Home Medications ?Medication ?Instructions ?Recorded ?Confirmed ?Type vits no.126-ferrous fum 1 tablet PO DAILY 05/31/24 11/07/24 History 28 mg iron-folic acid 800 mcg tablet (Classic ) aspirin 81 mg tablet,delayed 81 mg PO DAILY 06/21/24 11/07/24 History release (Adult Low Dose Aspirin) Allergies Allergy/AdvReac Type Severity Reaction Status Date / Time No Known Allergies Allergy Mild Verified 11/07/24 13:46 Exam Const: General: cooperative, healthy appearing and comfortable Resp: Effort & Inspection: normal respiratory effort Auscultation: clear to auscultation bilaterally Cardio: Rate: regular rate Rhythm: regular rhythm GI: Inspection: normal to inspection : Bimanual exam- vagina & uterus: enlarged ( 39cm/ heart tone 140) Assessment and Plan Assessment and plan (1) 38 weeks gestation of : Code(s): Z3A.38 - 38 weeks gestation of Status: Acute (2) Low lying placenta nos or without hemorrhage, third trimester: Code(s): O44.43 - Low lying placenta NOS or without hemorrhage, third trimester Status: Acute Plan Proceed with primary low-transverse section
[2024-11-10] MEDS: ACETAMINOPHEN 500 MG TABLET 1000 MG PO (09:57)
[2024-11-10] MEDS: LACTATED RINGERS 1,000 ML 125 ML IV CONT ×2 (09:58→12:39)
[2024-11-10 10:01] LABS: Basophils Percent Auto 0.4 % (0.2-1.2); Eosinophils Absolute Auto 0.1 K/mm3 (0-0.3); Eosinophils Percent Auto 1.1 % (0-4.4); Hematocrit 35.8 % (37.0-47.0); Hemoglobin 12.4 g/dL (12.0-15.0); Immature Granulocyte Absolute 0.03 K/mm3 (0.00-0.031); Immature Granulocyte Percent A 0.4 % (0-0.5); Lymphocytes Absolute Auto 1.17 K/mm3 (0.9-3.2); Mean Corpuscular HGB Conc 34.6 g/dl (32-36); Mean Corpuscular Hemoglobin 34.3 pg (26-34); Mean Corpuscular Volume 99.2 fl (80-100); Mean Platelet Volume 9.3 fl (7.4-10.4); Monocytes Absolute Auto 0.6 K/mm3 (0.1-0.6); Monocytes Percent Auto 6.6 % (2.6-8.5); Neutrophils Absolute Auto 6.5 K/mm3 (1.3-6.7); Neutrophils Percent Auto 77.5 % (45.5-73.1); Platelet Count Result 164 k/mm3 (150-375); Red Blood Count 3.61 M/mm3 (4.2-5.4); Red Cell Distribution Width 12.8 % (11.5-14.5); White Blood Count 8.4 K/mm3 (4.5-10.0)
--- NOTE | 2024-11-10 10:10 | LDADM ---
This patient, Gely Duong, was admitted to Labor/Delivery/Recovery 119 on 11/10/24 at 09:24. Plans for section, pain management and were discussed with patient. Patient/family oriented to hospital policies and general routines including ID bracelet, bed and alarms, visiting hours, pain management, procedures, bathroom and other care routines, personal items, smoking policy, room service/diet and guest tray routines, security routines, and visiting hours. Patient/Family are encouraged to report perceived risks to care and to ask questions if they do not understand what they are told or what they should do. See OBIX for further documentation.
[2024-11-10 10:32] LABS: Rapid Plasma Reagin Non-Reactive (NonReactive)
[2024-11-10 10:55] LABS: HIV 1/2 Ab P24 Ag Result Negative (Negative)
--- NOTE | 2024-11-10 11:17 | WPDHPUPDATE1 ---
History and Physical Update Update Date/Time: 11/10/24 11:17 History and Physical has been reviewed, including an updated exam of the patient. There are NO changes in the patient's condition. Risks, benefits, and alternatives have been discussed and questions answered. Patient agrees to proceed with procedure.
[2024-11-10] MEDS: ONDANSETRON INJ 4 MG/2 ML VIAL IV PUSH (12:37)
[2024-11-10] MEDS: FAMOTIDINE 20 MG/2 ML VIAL IV PUSH (12:37)
--- NOTE | 2024-11-10 12:42 | WPDANESEPPF ---
Anes - Initial Pre Proc Eval Procedure: Operation Date: 11/10/24 12:00 Proposed Procedures p Section with Tubal Ligation - Timmy Kendrick MD Date/Time: 11/10/24 12:42 Surgeon: Timmy Kendrick MD Pre Op Diagnosis: BREECH PRESENTATION / add-Desire Sterilization Patient Data Age: 34 Gender: F Height: 1.6 m Weight: 69 kg Last Vital Signs Temp 36.4 C L 11/10/24 09:46 Pulse 87 11/10/24 09:46 Resp 16 11/10/24 09:46 BP 123/68 11/10/24 09:46 O2 Del Method Room Air 11/10/24 10:08 Allergies Allergy/AdvReac Type Severity Reaction Status Date / Time No Known Allergies Allergy Mild Verified 11/07/24 13:46 Home Medications ?Medication ?Instructions ?Recorded ?Confirmed ?Type vits no.126-ferrous fum 1 tablet PO DAILY 05/31/24 11/10/24 History 28 mg iron-folic acid 800 mcg tablet (Classic ) aspirin 81 mg tablet,delayed 81 mg PO DAILY 06/21/24 11/10/24 History release (Adult Low Dose Aspirin) Laboratory Tests 11/10/24 09:50 WBC 8.4 K/mm3 (4.5-10.0) RBC 3.61 L M/mm3 (4.2-5.4) Hgb 12.4 g/dL (12.0-15.0) Hct 35.8 L % (37.0-47.0) MCV 99.2 fl (80-100) MCH 34.3 H pg (26-34) MCHC 34.6 g/dl (32-36) RDW 12.8 % (11.5-14.5) Plt Count 164 k/mm3 (150-375) MPV 9.3 fl (7.4-10.4) Immature Gran % (Auto) 0.4 % (0-0.5) Neut % (Auto) 77.5 H % (45.5-73.1) Lymph % (Auto) 14.0 L % (18.3-44.2) [place] % (Auto) 6.6 % (2.6-8.5) Eos % (Auto) 1.1 % (0-4.4) Baso % (Auto) 0.4 % (0.2-1.2) Lymph # (Auto) 1.17 K/mm3 (0.9-3.2) [place] # (Auto) 0.6 K/mm3 (0.1-0.6) Eos # (Auto) 0.1 K/mm3 (0-0.3) Baso # (Auto) 0.0 K/mm3 (0.0-0.1) Abs Immat Gran (auto) 0.03 K/mm3 (0.00-0.031) Absolute Neuts (auto) 6.5 K/mm3 (1.3-6.7) Absolute Nucleated RBC 0.000 K/mm3 (0.0-0.012) Nucleated RBC % 0.0 % (0.0-0.2) RPR Non-reactive (NonReactive) HIV 1&2 Ab/P24 Ag 4thGn Negative (Negative) Blood Type A Positive Antibody Screen Negative Patient hx anesthesia problems: none Family hx anesthesia problems: none Results Review: All pre-operative results and documents have been reviewed as part of the pre-operative evaluation. [facility] Past Medical History Medical History Lactating mother Spontaneous x 1 Missed ab Surgical History Surgical History History of hysteroscopy (08/21/23) Suction curettage Polypectomy / Missed / Habitual History of gynecological procedure (03/06/21) suction D&C missed AB with twins [place] teeth removed Family History Family History Other Myocardial infarct Grandparent FHx: prostate cancer Social History Social History Smoking status: Never smoker Second hand tobacco smoke exposure: No Alcohol intake: never Substance use: never Substance use type: does not use Do You Feel Safe in your Home?: Yes Lack of Transportation: No Lack of Food: Never True Current Housing: I Have Housing Concerned About Future Housing: No Difficulty Paying Gas/Electric Bills: No Difficulty Paying for Meds: No Currently Unemployed: No Education: Master's Degree or Higher Difficulty w/ Childcare or Family Care: No Living arrangements: with family Additional living arrangements comments: Occupation/Education: occupation Additional occupation/education comments: Teacher Gender identity (if verbalized by the patient): Female Sexual Orientation (if Verbalized by the Patient): Straight or Heterosexual Spiritual care concerns: No Anes - Eval Final PreProcedure Day of Procedure 11/10/24 12:42 Patient weight: overweight Heart: regular rate and rhythm Lungs: clear to auscultation and normal air movement Airway: Mallampati scale class II Neurological: alert and oriented Last oral intake: >/= 8 hours ASA classification: II Emergent: no Anesthetic plan: proceed Anesthesia type and monitoring: regional spinal and standard monitoring Results Review: All pre-operative results and documents have been reviewed as part of the pre-operative evaluation. Informed Consent: The patient's anesthetic plan and its attendant risks and benefits were discussed with the patient/family/POA. Questions were solicited and answers provided to the satisfaction of the patient/family/POA.
[2024-11-10] MEDS: ceFAZolin 2 GM/D5W 50 ML 2 GM/50 ML BAG IVPB (13:11)
--- NOTE | 2024-11-10 14:34 | W.PM.OBCSD ---
OB - Delivery Note Procedure Delivery date: 11/10/24 Pre-op diagnosis: Placenta Previa ( low lying placenta) and Other ( desires sterilization) Post-op Diagnosis: Same Delivery monitor: External FHT and External Uterine Procedure Performed: Primary Primary branch: low cervical, transverse and Tubal Ligation ( bilateral salpingectomy) Surgeon: Timmy Kendrick MD Anesthesia type: Spinal Description of Procedure/Findings: patient prepped and draped usual manner for this procedure. Pfannenstiel incision was made and carried down to the fascia which was then extended the lower segment. Superiorly and inferiorly dissected away from the rectus muscles and peritoneum was entered without difficulty. Bladder flap was developed without difficulty. Uterus was scored low transverse manner and extended bilaterally the length of the lower segment. Vertex was delivered without difficulty and rest of baby as well. Cord clamped and cut mom placenta was manually removed. Uterus was exteriorized cleared of membranes and clots and closed using 0 Monocryl in running locking manner with good hemostasis noted. Bilaterally the tubes were grasped with [place] clamps and tubes removed in their entirety by double ligating and then removing the tube. Uterus returned the abdomen gutters were cleared of serous and fluid and clots and tubal stumps were noted to be intact and hemostatic. All subfascial tissue with no be hemostatic and the fascia was approximated using 0 Vicryl from the left angle midline and the right angle to the midline with good approximation noted. Subcutaneous tissue was approximated 0 plain suture and ross were used to approximate the skin. Patient was then sent recovery room in stable condition. Specimen: Yes ( Bilateral tubes) Estimated Blood Loss: 715 Drains: Yes ( [place] catheter) Packing: No Pathology: Yes Complications: No immediate complications Condition: Stable Disposition: PACU [place] Baby Gestational Age by Date: 39 gender: Female Weight (pounds): 6 Weight (ounces): 2 presentation: vertex Placenta delivery description: Manual Removal Cord Vessel Description: 3 Vessels score one minute: 8 score five minutes: 9
[2024-11-10] MEDS: OXYTOCIN 30 UNITS/NS 500 ML 30 UNITS/500 ML BAG 125 UNITS IV CONT (14:56)
[2024-11-10] MEDS: ACETAMINOPHEN 325 MG TABLET 650 MG PO (17:35)
[2024-11-10] MEDS: SIMETHICONE 80 MG TAB.CHEW PO (17:35)
[2024-11-10] MEDS: KETOROLAC 15 MG/ML VIAL (*BKC) IV PUSH (17:35)
[2024-11-10] MEDS: DEXTROSE 5%/0.45% SOD CHL 1,000 ML 125 ML IV CONT (19:34)
[2024-11-11] MEDS: ACETAMINOPHEN 325 MG TABLET 650 MG PO ×4 (00:08→19:50)
[2024-11-11] MEDS: KETOROLAC 15 MG/ML VIAL (*BKC) IV PUSH ×2 (00:10→06:38)
[2024-11-11 00:12] VITALS: BP 107/70; PULSE 65; RESP 16; TEMP 36.6; O2SAT 100
[2024-11-11] MEDS: SIMETHICONE 80 MG TAB.CHEW PO ×3 (06:39→17:23)
[2024-11-11] MEDS: MULTIVIT/MIN/PREN/FOL AC/IRON TABLET 1 TAB PO (06:39)
[2024-11-11] MEDS: DOCUSATE SODIUM 100 MG CAPSULE PO ×2 (06:39→17:23)
--- NOTE | 2024-11-11 07:39 | P.PNOB_ITS ---
OB - PN: Subj Subjective Date/time seen: 11/11/24 07:39 Patient comments: no complaints, pain well controlled, tolerating diet and flatus present OB - PN: Obj Data Labs 11/10/24 09:50 Labs: Laboratory Results - last 24 hr 11/10/24 09:50 WBC 8.4 RBC 3.61 L Hgb 12.4 Hct 35.8 L MCV 99.2 MCH 34.3 H MCHC 34.6 RDW 12.8 Plt Count 164 MPV 9.3 Immature Gran % (Auto) 0.4 Neut % (Auto) 77.5 H Lymph % (Auto) 14.0 L [place] % (Auto) 6.6 Eos % (Auto) 1.1 Baso % (Auto) 0.4 Lymph # (Auto) 1.17 [place] # (Auto) 0.6 Eos # (Auto) 0.1 Baso # (Auto) 0.0 Abs Immat Gran (auto) 0.03 Absolute Neuts (auto) 6.5 Absolute Nucleated RBC 0.000 Nucleated RBC % 0.0 RPR Non-reactive HIV 1&2 Ab/P24 Ag 4thGn Negative Blood Type A Positive Antibody Screen Negative OB - PN A/P Plan day: 1 Plan: routine care Comments: patient doing well H/H pending afebrile, VSS incision C/D/I stewart removed, voiding spontaneously continue routine post op care Time Spent With Patient Time: Total time spent is greater than 50% in coordination of care (as documented) at patient's floor/unit and/or counseling patient: Time with patient: less than 15 minutes Review of Systems 2 Constitutional: Constitutional: Reports no additional constitutional complaints Cardiovascular: Cardiovascular: Reports no additional cardiovascular complaints Respiratory: Respiratory: Reports no additional respiratory complaints Gastrointestinal: Gastrointestinal: Reports no additional gastrointestinal complaints Genitourinary: Genitourinary: Reports no additional female genitourinary complaints Exam 2 Const: General: comfortable and no acute distress Resp: Effort & Inspection: normal respiratory effort Auscultation: clear to auscultation bilaterally Cardio: Rate: regular rate GI: GI Palp: Yes Soft to palpation, Yes Tenderness to palpation present (GI) (around incision ) and No Guarding due to palpation present (GI) A uscultation: normal bowel sounds Other: incision C/D/I, covered with Dermabond Psych: Appearance: grossly normal Mental Status: mental status grossly normal Affect: normal affect
[2024-11-11 08:00] VITALS: BP 97/56; PULSE 70; RESP 16; TEMP 36.6
--- NOTE | 2024-11-11 09:00 | PC.NURSE ---
Mother verbalizes she is able to independently latch with appropriate positioning and alignment. She denies any nipple discomfort and is responsively . Infant is currently meeting outcomes for weight, output, jaundice, blood sugar and feeding frequencies of 8-12 times in 24 hours. Mother declines any additional assistance or education at this time. Mother is encouraged to call for assistance if her infant doesn?t latch, pain with latching, questions or concerns. Mother voiced understanding of information shared along with the mom/baby guide for an additional resource. Reported to the Primary RN.
[2024-11-11 09:20] LABS: Basophils Percent Auto 0.3 % (0.2-1.2); Eosinophils Absolute Auto 0.1 K/mm3 (0-0.3); Eosinophils Percent Auto 0.8 % (0-4.4); Hematocrit 28.6 % (37.0-47.0); Hemoglobin 9.5 g/dL (12.0-15.0); Immature Granulocyte Absolute 0.05 K/mm3 (0.00-0.031); Immature Granulocyte Percent A 0.5 % (0-0.5); Lymphocytes Absolute Auto 0.71 K/mm3 (0.9-3.2); Lymphocytes Percent Auto 7.7 % (18.3-44.2); Mean Corpuscular HGB Conc 33.2 g/dl (32-36); Mean Corpuscular Hemoglobin 34.2 pg (26-34); Mean Corpuscular Volume 102.9 fl (80-100); Mean Platelet Volume 9.3 fl (7.4-10.4); Monocytes Absolute Auto 0.5 K/mm3 (0.1-0.6); Monocytes Percent Auto 5.4 % (2.6-8.5); Neutrophils Absolute Auto 7.9 K/mm3 (1.3-6.7); Neutrophils Percent Auto 85.3 % (45.5-73.1); Platelet Count Result 126 k/mm3 (150-375); Red Blood Count 2.78 M/mm3 (4.2-5.4); Red Cell Distribution Width 12.8 % (11.5-14.5); White Blood Count 9.2 K/mm3 (4.5-10.0)
--- NOTE | 2024-11-11 10:02 | WPDANLDPN2 ---
Anes-Prog Note L&D Date/Time: 11/11/24 10:02 Comfortable throughout: section Neuraxial method: spinal Epidural/Spinal procedure site: clean & non-tender Neuro status: Neuro function grossly intact. Cardiovascular status: normal Respiratory status: normal Airway patency: baseline Mental status: baseline Post-Op hydration status: normal Vital Signs: Last Vital Signs Temp 36.6 C 11/11/24 08:00 Pulse 70 11/11/24 08:00 Resp 16 11/11/24 08:00 BP 97/56 L 11/11/24 08:00 Pulse Ox 100 11/11/24 00:12 O2 Del Method Room Air 11/11/24 00:12 Pain score (VAS): 0/10 I/O: Intake & Output 11/10/24 11/11/24 11/11/24 23:59 07:59 15:59 Intake Total 500 750 Output Total 1850 200 Balance 500 -1100 -200 Post-procedural complaints: none Patient feedback: Patient satisfied with anesthetic care.
--- NOTE | 2024-11-11 10:03 | WPDANLDNPN2 ---
Anes-Prog Note L&D-Neuraxial Date/Time: 11/11/24 10:03 Neuraxial medications: intrathecal PF morphine Opiod-related complaints: pruritis mild, no treatment Patient feedback: Patient satisfied with post-operative pain management.
[2024-11-11] MEDS: IBUPROFEN 600 MG TABLET PO ×2 (12:57→19:50)
[2024-11-11] MEDS: POLYSACCHARIDE IRON COMPLEX 150 MG CAPSULE PO (17:23)
[2024-11-11 19:50] VITALS: BP 106/67; PULSE 82; RESP 16; TEMP 36.8
[2024-11-11] MEDS: HYDROcodone/acetaminophen (*CRX) 5-325 MG TABLET 1 TAB PO (19:50)
[2024-11-12] MEDS: ACETAMINOPHEN 325 MG TABLET 650 MG PO ×2 (01:59→07:46)
[2024-11-12] MEDS: IBUPROFEN 600 MG TABLET PO ×2 (01:59→07:46)
[2024-11-12 07:35] VITALS: BP 110/67; PULSE 73; RESP 16; TEMP 36.1
[2024-11-12] MEDS: POLYSACCHARIDE IRON COMPLEX 150 MG CAPSULE PO (07:46)
[2024-11-12] MEDS: SIMETHICONE 80 MG TAB.CHEW PO (07:46)
[2024-11-12] MEDS: DOCUSATE SODIUM 100 MG CAPSULE PO (07:46)
[2024-11-12] MEDS: MULTIVIT/MIN/PREN/FOL AC/IRON TABLET 1 TAB PO (07:46)
--- NOTE | 2024-11-12 08:10 | PC.NURSE ---
Consulted with mother concerning needs and she shared her ability to independently latch infant optimally without pain. Mother is feeding appropriately for growth of and understands stimulating to eat if needed. Infant has had appropriate feedings in the last 24 hours meets the outcomes for weight, output, blood sugar and jaundice at this time. Reinforced understanding of milk production, transition of milk, signs of adequate intake, transition of stool, prevention/relief of engorgement, plugged ducts, mastitis, responsive watching for feeding cues, community resources, and when to call a provider using the resource of the feeding sheet along with the mom and baby guide. Feeding plan entered on baby's discharge. Mother voiced understanding of the information shared, is confident to continue effectively her at home, when to call for assistance, denies any additional assistance or education at this time. Reported to the Primary RN.
--- NOTE | 2024-11-12 09:57 | P.PNOB_ITS ---
OB - PN: Subj Subjective Date/time seen: 11/12/24 09:57 Patient comments: no complaints, pain well controlled, tolerating diet and flatus present OB - PN: Obj Data Labs 11/11/24 09:12 OB - PN A/P Plan day: 2 Plan: discharge home Comments: Doing well. Request discharge home. Discharge precautions discussed. Time Spent With Patient Time: Total time spent is greater than 50% in coordination of care (as documented) at patient's floor/unit and/or counseling patient: Exam 2 Const: General: comfortable and no acute distress Resp: Effort & Inspection: normal respiratory effort GI: Other: incision intact ross intact no drainage or erythema fundus firm -1 umb Extrem: General: normal to inspection and no calf tenderness Psych: Mental Status: mental status grossly normal
--- NOTE | 2024-11-12 10:26 | PM.OBDSVD ---
DS: Admitting Diagnosis Discharge Date 11/12/24 Admitting Diagnosis Abnormal placentation DS: Discharge Diagnosis Discharge Diagnosis (1) Low lying placenta nos or without hemorrhage, third trimester: Code(s): O44.43 - Low lying placenta NOS or without hemorrhage, third trimester Status: Acute (2) delivery delivered: Code(s): O82 - Encounter for delivery without indication Status: Acute OB - DS: Summary Hospital Course Hospital Course: She was admitted for section for low lying placenta. She had an uncomplicated delivery. She did well . She had adequate pain control and was tolerating regular diet and ambulating without problems. Baby was doing well. OB Procedures : Ultrasound OB Procedures Intrapartum: OB Procedures: : None Peripartum Data Infant Delivery Method: Section Procedures: Procedures Operation Date: 11/10/24 12:00 Actual Procedure Side Surgeon p Section with Tubal Ligation Not Applicable Timmy Kendrick MD complications: none Status at Discharge Functional status at discharge: independent ambulation Time Spent with Patient Time attestation: Total time spent providing and/or coordinating discharge services: Exam Const: General: cooperative Orientation/consciousness: oriented to person, oriented to place and oriented to time HENMT: Face/Nose/Sinus: Normal external nose present Eyes: General: appearance normal, both eyes and all related structures Resp: Effort & Inspection: normal respiratory effort GI: Inspection: normal to inspection Other: incision intact Skin: General skin exam: normal color Neuro: General: oriented to person, oriented to place and oriented to time Extrem: General: normal to inspection and no calf tenderness Psych: Appearance: grossly normal Mental Status: mental status grossly normal DS: Data Data Completed and Pending Pending studies at discharge: Pending at discharge 11/10/24 13:42 Surgical [PTH] Routine Discharge Plan Discharge Attending physician on discharge: Timmy Kendrick Consulting providers: Anupam Carranza Discharging Clinician: Baljinder Sanches Anticipated Discharge Date/Time: 11/12/24 10:15 Patient Disposition: Home, Self-Care Activity: as tolerated and pelvic rest Diet: regular Patient Instructions: Antibiotic Form, (DC) Patient Language: Green[place]ic Stand Alone Forms: General Discharge Information Follow-up/Referrals: Timmy Kendrick MD [Physician] - Discharge Medications: New oxycodone-acetaminophen 5-325 mg tablet 1 tablet PO Q6H PRN (Reason: pain) Qty: 28 0RF ibuprofen 600 mg tablet 600 mg PO Q6H PRN (Reason: pain) Qty: 30 0RF Continued Classic 28 mg iron- 800 mcg tablet 1 tablet PO DAILY Discontinued aspirin [Adult Low Dose Aspirin] 81 mg tablet,delayed release (DR/EC) 81 mg PO DAILY Date of admission: 11/10/24 09:24 Primary Care Provider: PHYSICIAN,SUPERVISOR VENEER Admitting Provider: Timmy Kendrick Attending physician on admission: Timmy Kendrick Condition: Stable
[2024-11-14 11:24] VITALS: BP 114/69; PULSE 72; RESP 18; TEMP 37.2; O2SAT 100
== END 2024-11-12 11:38 | disposition home or self-care (01) | DRG 785 ==
LOC: ANHLDR 09:30 → ANHOB2 16:51
PROVIDERS: Admitting Provider Obstetrics & Gynecology; Visit Provider Obstetrics & Gynecology
PROC: 10D00Z1 Extraction of Products of Conception, Low, Open Approach (ICD-10-PCS; CPT 59514; principal; 2024-11-10 12:00)
DX: O44.43 Low lying placenta NOS or without hemorrhage, third trimester (principal); Z37.0 Single live birth; Z3A.38 38 weeks gestation of pregnancy; Z30.2 Encounter for sterilization
CPT/HCPCS: 36415; 85025; 86592; 86703; 86850; 86900; 86901; 88302; A9270; G0432; J0690; J1885; J2274; J2405; J2590; J7120